=== PATIENT | female | born 1965 | race Caucasian/White ===

== ENCOUNTER → 2018-11-07 | Outpatient (CLI) | payer BC, OTHER ==
--- NOTE | 2018-11-07 16:51 | REP ---
Clinical: Pain. Technique: Single supine view of the abdomen and pelvis. Comparison: None. Findings: Moderate fecal stasis is suggested. No bowel obstruction or perforation noted. Calcification in the right upper quadrant likely represents gallstone. Skeletal structures are intact. Impression: 1. Moderate fecal stasis suggested. 2. Cholelithiasis. Electronically Signed by Trung Burch MD 11/07/2018 03:21 P
[2018-11-07 17:26] LABS: BASO # 0.1 10^3/uL (0.0-0.2); BASO % 0.6 % (0.0-1.0); EOS % 0.2 % (0.0-3.0); HEMOGLOBIN 13.2 g/dl (12.0-15.5); LYMPH # 2.4 10^3/uL (1.5-4.5); LYMPH % 27.6 % (24.0-44.0); MEAN CORPUSCULAR HEMOGLOBIN 29.5 pg (27.0-33.0); MEAN CORPUSCULAR VOLUME 89.5 fl (80.0-96.0); MONO # 0.6 10^3/uL (0.0-0.8); MONO % 7.3 % (0.0-5.0); NEUTROPHILS # 5.6 10^3/uL (1.8-7.7); PLATELET COUNT, AUTOMATED 342 10^3/uL (150-450); RED BLOOD COUNT 4.47 10^6/uL (4.00-5.40); WHITE BLOOD COUNT 8.8 10^3/uL (4.0-10.0)
[2018-11-07 17:37] LABS: ALBUMIN 4.5 GM/DL (3.2-5.2); ALT/SGPT 93 U/L (12-78); AMYLASE 36 U/L (25-115); BILIRUBIN,TOTAL 0.5 MG/DL (0.2-1.0); BLOOD UREA NITROGEN 15 MG/DL (7-18); CALCIUM LEVEL 9.7 MG/DL (8.5-10.1); CARBON DIOXIDE LEVEL 28 MEQ/L (21-32); CHLORIDE LEVEL 103 MEQ/L (98-107); CREATININE FOR GFR 0.88 MG/DL (0.55-1.30); GLOMERULAR FILTRATION RATE > 60.0 (>51); GLUCOSE, FASTING 93 MG/DL (70-100); LIPASE 115 U/L (73-393); POTASSIUM SERUM 4.1 MEQ/L (3.5-5.1); SODIUM LEVEL 139 MEQ/L (136-145); TOTAL PROTEIN 8.7 GM/DL (6.4-8.2)
[2018-11-08 08:34] LABS: H PYLORI QUALITATIVE IgG NEGATIVE (NEGATIVE)
== END ==
LOC: M WUC 15:11
PROVIDERS: ATTEND Physician Assistant
DX: K91.86 Retained cholelithiasis following cholecystectomy (principal); R10.13 Epigastric pain

== ENCOUNTER → 2018-11-15 | Outpatient (CLI) | payer BC, OTHER ==
--- NOTE | 2018-11-15 08:54 | REP ---
Clinical: Right upper quadrant pain and tenderness. Technique: Real time espinoza scale ultrasound examination using curved array transducer. Findings: Liver and pancreas are normal in contour, size, echogenicity without focal hepatic or pancreatic lesion identified. Gallbladder demonstrates gallstone with posterior shadowing. No evidence for wall thickening or pericholecystic fluid. No biliary ductal dilatation is appreciated and the common bile duct measures 5.3 mm diameter. The right kidney is normal in reniform shape without hydronephrosis and measures 10.4 x 5.6 x 4.5 cm. No ascites. Impression: 1. Cholelithiasis without sonographic evidence for acute cholecystitis. Electronically Signed by Trung Burch MD 11/15/2018 08:46 A
== END ==
LOC: M RAD 06:49
PROVIDERS: ATTEND Physician Assistant
DX: K80.20 Calculus of gallbladder without cholecystitis without obstruction (principal)

== ENCOUNTER 2019-01-16 13:42 | Day surgery (SDC) | payer BC, OTHER ==
[~2019-01-16] VITALS: Ht 162.6 cm; Wt 71.2 kg
[~2019-01-16 13:42] MED LIST: ALIVTAB PO; CALC500C16 PO; LR 1,000 ML IV ONE; OMEP-221 PO; VITA200021 PO; [UNRECOGNIZED DRUG - OTHER] PO; calcium PO
[2019-01-16] MEDS ORDERED: BUPIVACAINE HCL 0.25% 30 ML VIAL As Ordered ONE (19:29)
[2019-01-16] MEDS ORDERED: SCOPOLAMINE 1MG TRANSDERMAL PATCH TOP ONE (19:45)
[2019-01-16] MEDS ORDERED: SCOPOLAMINE 1MG TRANSDERMAL PATCH As Ordered ONE (19:45)
[2019-01-16] MEDS ORDERED: LR 1,000 ML IV ONE (20:00)
[2019-01-16] MEDS ORDERED: dexameTHASONE 4 MG/ML 1ML VIAL (J1100) As Ordered ONE (20:22)
[2019-01-16] MEDS ORDERED: LIDOCAINE 2% INJ 100 MG/5 ML SDV (FOR ANES.) As Ordered ONE (20:22)
[2019-01-16] MEDS ORDERED: fentaNYL 250 MCG/5 ML INJECTION (J3010) As Ordered ONE (20:22)
[2019-01-16] MEDS ORDERED: ONDANSETRON 4MG/2ML VIAL (J2405) As Ordered ONE (20:22)
[2019-01-16] MEDS ORDERED: MIDAZOLAM INJ 2 MG/2 ML VIAL (J2250) As Ordered ONE (20:22)
[2019-01-16] MEDS ORDERED: ROCURONIUM BROMIDE 50 MG/5 ML VIAL As Ordered ONE (20:22)
[2019-01-16] MEDS ORDERED: PROPOFOL 200 MG/20 ML VIAL As Ordered ONE ×2 (20:22→21:09)
[2019-01-16] MEDS ORDERED: SUGAMMADEX SODIUM 500 MG/5 ML VIAL (BRIDION) As Ordered ONE (20:22)
[2019-01-16] MEDS ORDERED: ACETAMINOPHEN 1000MG 100ML IV BTL (OFIRMEV) (J0131 PER 10MG) As Ordered ONE (20:22)
[2019-01-16] MEDS ORDERED: KETOROLAC 60 MG/2 ML VIAL (J1885) As Ordered ONE (21:09)
[2019-01-16] MEDS ORDERED: MEPERIDINE INJ 25 MG/ML VIAL (J2175) IV PRN (21:45)
[2019-01-16] MEDS ORDERED: oxyCODONE 5MG TAB PO PRN (21:45)
[2019-01-16] MEDS ORDERED: fentaNYL 100 MCG/2 ML INJECTION (J3010) IV PRN (21:45)
[2019-01-16] MEDS ORDERED: LR 1,000 ML IV SCH (21:45)
[2019-01-16] MEDS ORDERED: METOCLOPRAMIDE INJ 10MG/2ML VIAL (J2765) IV PRN (21:45)
[2019-01-16] MEDS ORDERED: ONDANSETRON 4MG/2ML VIAL (J2405) IV PRN (21:45)
[2019-01-16 22:50] VITALS: BP 144/77
--- NOTE | 2019-01-17 20:34 | ECGEPIP ---
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 Electronically Signed on 01-17-2019 20:33:58 EDT by Dionicio Houser
--- NOTE | 2019-01-18 11:17 | RO ---
DATE OF PROCEDURE: 01/16/2019 PREOPERATIVE DIAGNOSIS: Symptomatic gallstones. POSTOPERATIVE DIAGNOSIS: Symptomatic gallstones. PROCEDURE PERFORMED: Robotic-assisted laparoscopic cholecystectomy. SURGEON: Dr. Duke Jurado DEBEADER: ANESTHESIA: General. INDICATIONS FOR PROCEDURE: The patient is a 53-year-old woman with a history of episodic upper abdominal discomfort. She was found to have cholelithiasis and is now for a laparoscopic cholecystectomy. OPERATIVE PROCEDURE: The patient was placed supine on the operating table. She was placed under general endotracheal anesthesia. The patient's abdomen was prepped and draped in a sterile fashion. 0.25% Marcaine was injected in the left upper quadrant and used for the trocar sites as needed. A short transverse incision was made and a Veress needle was inserted. After a positive hanging drop test, the abdomen was insufflated with carbon dioxide gas. An 8 mm da Jenni surgical port was placed in the left upper quadrant. Inspection showed no significant adhesions that would interfere with placement of additional trocars. The three additional trocars were placed roughly in an oblique line across the midabdomen extending from the left upper quadrant to the right lower quadrant. These were spaced appropriately. The da Jenni patient cart of the Xi robot was brought into position and the camera port was docked. Targeting took place and the additional trocars were then docked as well. The patient had been placed into a reverse Trendelenburg position with a slight roll to the left prior to docking the robot. A bipolar cautery was placed in the medial right lower quadrant with a grasping retractor lateral to this and a hook cautery was placed in the left upper quadrant. The edge of the liver was elevated and the gallbladder was identified and grasped and elevated. The gallbladder appeared somewhat pale and thickened, but was not acutely inflamed. Dissection proceeded along the body and neck of gallbladder. Some fibrofatty tissue was dissected away. The cystic duct was clearly identified as was the cholecystic artery. Both structures were doubly clipped with Hem-o-boom clips and divided. The gallbladder was then dissected free from the gallbladder bed using the hook cautery. The gallbladder was not perforated in the course of dissection. Inspection revealed no bleeding and no evidence of bile leak. The gallbladder was placed into a 5 mm specimen retrieval pouch inserted in the right lower quadrant medial port. The patient was returned to a flat position and the robot was undocked and removed. The abdomen was deflated and the trocars were removed. The gallbladder was removed through the right lower quadrant medial trocar site. This required extending the skin incision and an incision in the anterior fascia somewhat. There were several small stones palpable within the gallbladder. The fascia of the rectus sheath both anterior and posterior layers were closed with interrupted simple sutures of #2-0 Vicryl. The skin incisions were all closed with buried #5-0 Vicryl and Steri-Strips. Light dressings were applied. The patient tolerated procedure well without apparent complication. She was awakened in the operating room, extubated and moved to the recovery room in stable condition.
== END 2019-01-16 22:58 | disposition home or self-care (01) ==
LOC: M SDC 13:42
PROVIDERS: ATTEND Surgery
DX: K80.10 Calculus of gallbladder with chronic cholecystitis without obstruction (principal); K21.9 Gastro-esophageal reflux disease without esophagitis; Z79.899 Other long term (current) drug therapy
CPT/HCPCS: 47562; 88304; 93005; J0131; J1100; J1885; J2250; J2405; J3010

== ENCOUNTER → 2019-04-05 | Outpatient (CLI) | payer OTHER, BC ==
[~2019-04-05] MED LIST changes: -LR 1,000 ML IV ONE
[2019-04-05 16:52] LABS: FERRITIN 58 NG/ML (8-252); IRON (FE) 73 UG/DL (50-170)
[2019-04-06 10:26] LABS: HEPATITIS B SURFACE ANTIBODY NEGATIVE (POSITIVE)
[2019-04-06 11:01] LABS: HEPATITIS C VIRUS ABY INDEX 0.1 INDEX (<0.8)
[2019-04-06 11:02] LABS: HEPATITIS B CORE ANTIBODY IGM NEGATIVE (NEGATIVE)
[2019-04-08 00:06] LABS: ALPHA 1 ANTITRYPSIN 146 mg/dL (101-187); ANTI-MITOCHONDRIAL ANTIBODY <20.0 Units (0.0-20.0); ANTI-SMOOTH MUSCLE ANTIBODY 4 Units (0-19); ANTINUCLEAR ANTIBODIES DIRECT Negative (Negative); CERULOPLASMIN 28.8 mg/dL (19.0-39.0); TISSUE TRANSGLUTAMINASE IgA <2 U/mL (0-3); TISSUE TRANSGLUTAMINASE IgG <2 U/mL (0-5); TRANSFERRIN 271 mg/dL (200-370); UNITSIGA FOR GLIADIN IGA 6 units (0-19); UNITSIGG FOR GLIADIN IGG 2 units (0-19)
== END ==
LOC: M WUC 13:38
DX: R10.13 Epigastric pain (principal); Z12.11 Encounter for screening for malignant neoplasm of colon; R94.5 Abnormal results of liver function studies

== ENCOUNTER → 2020-05-15 | Outpatient (CLI) | payer BC, OTHER | LOC: M LABSMTC 10:15 | PROVIDERS: ATTEND Internal Medicine Gastroenterology | DX: Z20.828 Contact with and (suspected) exposure to other viral communicable diseases (principal) ==